=== PATIENT | female | born 1945 | race Caucasian/White ===

== ENCOUNTER 2016-06-22 09:33 | Emergency (ER) | payer OTHER, MEDICAID ==
[~2016-06-22] VITALS: Ht 165.1 cm; Wt 68.0 kg
[2016-06-22 09:33] VITALS: BP_SYST 140
--- NOTE | 2016-06-22 09:33 | NUR ---
BROUGHT BACK TO BED #8 AND TRIAGED. REPORT GIVEN TO GEORGETTE
--- NOTE | 2016-06-22 09:35 | NUR ---
DR THOMAS AT BEDSIDE FOR EVALUATION.
--- NOTE | 2016-06-22 09:40 | NUR ---
PT STATES VERTIGO AND CONGESTION TO RIGHT EAR. DENIES ANY PAIN OR DISCOMFORT
[2016-06-22 10:20] VITALS: BP_SYST 131
--- NOTE | 2016-06-22 10:20 | NUR ---
Patient given written and verbal discharge instructions and verbalizes understanding. ER MD discussed with patient the results and treatment provided. Given copies of tests performed in ER. Patient in stable condition. ID arm band removed. Rx of MECLIZINE, FLONASE given. Patient educated on pain management and to follow up with PMD. Pain Scale 0/10. Opportunity for questions provided and answered.
== END 2016-06-22 10:20 | disposition home or self-care (01) ==
LOC: SED 09:33
DX: R42 Dizziness and giddiness (principal); H69.91 Unspecified Eustachian tube disorder, right ear; E11.9 Type 2 diabetes mellitus without complications; I10 Essential (primary) hypertension
CPT/HCPCS: 99283

== ENCOUNTER 2016-10-07 11:03 | Emergency (ER) | payer OTHER, MEDICAID ==
[~2016-10-07] VITALS: Ht 160 cm; Wt 68.0 kg
[2016-10-07 11:09] VITALS: BP_SYST 147
[2016-10-07 14:00] VITALS: BP_SYST 132
== END 2016-10-07 14:00 | disposition home or self-care (01) ==
LOC: SED 11:03
DX: S52.501A Unspecified fracture of the lower end of right radius, initial encounter for closed fracture (principal); E11.9 Type 2 diabetes mellitus without complications; I10 Essential (primary) hypertension; W18.30XA Fall on same level, unspecified, initial encounter; Y93.89 Activity, other specified; Y92.009 Unspecified place in unspecified non-institutional (private) residence as the place of occurrence of the external cause; Y99.8 Other external cause status
CPT/HCPCS: 99284